=== PATIENT | male | born 2000 | race Caucasian/White ===

== ENCOUNTER 2018-10-12 03:12 | Emergency (ER) | payer BC ==
[~2018-10-12] VITALS: Ht 175.3 cm; Wt 70.0 kg
[2018-10-12] MEDS ORDERED: ALBUTEROL INHALER (03:18)
--- NOTE | 2018-10-12 03:21 | NUR ---
VERY PLEASANT YOUNG MAN HERE WITH FATHER, ATE TWO CORNDOGS THIS AM, APPROX 1 HOUR AGO AND NOW FEELS IF ONE IS STUCK. AIRWAY CLEAR, ABLE TO SWALLOW SECRETIONS, NOT ABLE TO DRINK FLUIDS.
[2018-10-12 03:26] VITALS: BP 126/81
--- NOTE | 2018-10-12 03:40 | NUR ---
Given carbonated drink per pa request to attempt clearance of fb.
--- NOTE | 2018-10-12 03:49 | NUR ---
Tolerating carbonated drink and "i think its going away".
--- NOTE | 2018-10-12 04:26 | NUR ---
Pt still tolerating own secretions and states "the lump has either gone down, or completely gone." Pa aware. Tbdc.
== END 2018-10-12 04:42 | disposition home or self-care (01) ==
LOC: ED 04:06
DX: T18.128A Food in esophagus causing other injury, initial encounter (principal); X58.XXXA Exposure to other specified factors, initial encounter; Y93.89 Activity, other specified; Y92.89 Other specified places as the place of occurrence of the external cause; Y99.8 Other external cause status
CPT/HCPCS: 99281